=== PATIENT | female | born 1960 | race Caucasian/White ===

== ENCOUNTER 2016-09-07 16:22 | Observation (INO) | payer OTHER ==
[~2016-09-07] VITALS: Ht 157.5 cm; Wt 90.8 kg
[~2016-09-07 16:22] MED LIST: AMBIEN CR12.5 MG PO; AMBIEN10 MG PO; CIPRO500 MG PO; FLUOXETINE HCL20 M1 PO; KEPPRA; KEPPRA500 MG PO; KLONOPIN0.5 M1 PO; LAMICTAL100 MG PO; LAMOTRIGINE; LAMOTRIGINE100 MG PO; OMEPRAZOLE40 M1 PO; OXYCODONE HCL5 MG PO; TYLENOL WITH C1 EACH PO; ZOFRAN4 MG PO; ZOLPIDEM TART12.5 MG PO
[2016-09-07 17:05] LABS: EOSINOPHIL (%) 0.1 % (0-5); HEMATOCRIT 43.6 % (36.0-46.0); IMMATURE GRANULOCYTE (%) 0.7 % (0.0-0.7); IMMATURE GRANULOCYTE COUNT 0.1 K/uL; INSTRUMENT ABS NEUTROPHIL CT 15.6 K/uL; LYMPHOCYTE COUNT 1.1 K/uL (1.0-2.8); MCH 29.8 PG (29.0-34.0); MCHC 33.3 G/DL (30.0-36.0); MCV 89.5 FL (83-99); MEAN PLAT.VOLUME 8.1 uM^3 (9.5-12.4); MONOCYTE (%) 8.5 % (3-12); MONOCYTE COUNT 1.6 K/uL (0-0.8); NEUTROPHIL (%) 84.6 % (45-76); NEUTROPHIL COUNT 15.6 K/uL (1.8-6.4); PLATELET COUNT 197 K/uL (156-360); RBC DIS.WIDTH-SD 42.8 % (39-53); RED BLOOD COUNT 4.87 M/uL (3.80-5.20); WHITE BLOOD COUNT 18.4 K/uL (4.1-10.2)
[2016-09-07 17:17] LABS: CHLORIDE 104 mEq/L (99-109); POTASSIUM 5.2 mEq/L (3.7-5.4); SODIUM 142 mEq/L (136-147)
[2016-09-07 17:19] LABS: GLUCOSE 93 mg/dL (70-99)
[2016-09-07 17:20] LABS: ANION GAP 11 MEQ/L (2-14)
[2016-09-07 17:21] LABS: TOTAL BILIRUBIN 0.1 mg/dL (0.0-1.0)
[2016-09-07 17:22] LABS: ALKALINE PHOSPHATASE 83 IU/L (3-129)
[2016-09-07 17:23] LABS: GFR ESTIMATE (CALCULATED) 45 mL/min/
[2016-09-07 17:24] LABS: UREA NITROGEN (BUN) 15 mg/dL (9-23)
[2016-09-07 17:25] LABS: TROP-I INTERPRETATION NEGATIVE; TROPONIN-I 0.08 ng/mL (0.0-0.30)
[2016-09-07 17:26] LABS: CREATINE KINASE 124 IU/L (1-294); TOTAL CK 124 IU/L (1-294)
[2016-09-07 17:32] LABS: CK-MB 2.3 ng/mL (0.0-4.9)
[2016-09-07] MEDS ORDERED: CLONAZEPAM0.5 MG PO (19:31)
[2016-09-07] MEDS ORDERED: PERCOCET 5/31 TABLET PO (19:31)
[2016-09-07] MEDS ORDERED: OXCARBAZEPINE600 MG PO ×2 (19:31)
[2016-09-07 20:44] LABS: ADD MIUA? YES; BILIRUBIN NEGATIVE; BLOOD NEGATIVE; COLOR YELLOW ((YELLOW)); GLUCOSE (STRIP) NEGATIVE; KETONES NEGATIVE; LEUKOCYTES MODERATE; NITRITE NEGATIVE; PROTEIN (STRIP) 100; SPECIFIC GRAVITY 1.013 (1.000-1.030); UROBILINOGEN 0.2 MG/DL (0.2-1.0)
[2016-09-07 20:51] LABS: BACTERIA 1+ /HPF; EPITHELIAL CELLS 4+ /HPF; GRANULAR CASTS 0-5 /LPF; HYALINE CASTS 40-50 /LPF; MUCUS 1+ /LPF; UCUL ADDED? NO; WHITE BLOOD CELLS 20-30 /HPF (0-5)
[2016-09-07 20:52] LABS: ADD MEDTOX COMMENT Y; AMPHETAMINE NEGATIVE (500 ng/mL); BARBITURATES NEGATIVE (200 ng/mL); BENZODIAZEPINES PRESUMPTIVE POSITIVE (150 ng/mL); COCAINE NEGATIVE (150 ng/mL); INTERNAL CONTROLS VALID? YES; METHADONE NEGATIVE (200 ng/mL); METHAMPHETAMINE NEGATIVE (500 ng/mL); OPIATES (MORPHINE) NEGATIVE (100 ng/mL); OXYCODONE PRESUMPTIVE POSITIVE (100 ng/mL); PHENCYCLIDINE NEGATIVE (25 ng/mL); PROPOXYPHENE NEGATIVE (300 ng/mL); THC CANNABINOIDS PRESUMPTIVE POSITIVE (50 ng/mL); TRICYCLIC ANTIDEPRESSANTS NEGATIVE (300 ng/mL)
[2016-09-07 21:24] LABS: BENZODIAZEPINES QUANT VALUE 0 NG/ML; BENZODIAZEPINES, URINE SCREEN Negative (200 ng/mL)
[2016-09-08 00:01] LABS: D-DIMER ELISA 0.47 mg/L FEU (< 0.57); INTER. NORMALIZED RATIO 1.1; PROTHROMBIN TIME 11.1 (9.2-11.2); PTT 23.6 (25-32)
[2016-09-08 00:48] VITALS: BP 125/73
[2016-09-08 05:00] VITALS: BP 118/70
[2016-09-08 06:12] LABS: EOSINOPHIL (%) 0 % (0-5); HEMATOCRIT 33.2 % (36.0-46.0); IMMATURE GRANULOCYTE (%) 0.4 % (0.0-0.7); INSTRUMENT ABS NEUTROPHIL CT 7.8 K/uL; MCH 29.2 PG (29.0-34.0); MCHC 33.1 G/DL (30.0-36.0); MCV 88.1 FL (83-99); MEAN PLAT.VOLUME 8.7 uM^3 (9.5-12.4); MONOCYTE (%) 7.7 % (3-12); MONOCYTE COUNT 0.8 K/uL (0-0.8); NEUTROPHIL (%) 73.3 % (45-76); NEUTROPHIL COUNT 7.8 K/uL (1.8-6.4); PLATELET COUNT 170 K/uL (156-360); RBC DIS.WIDTH-CV 13.2 % (11.8-14.6); RBC DIS.WIDTH-SD 42.1 % (39-53); WHITE BLOOD COUNT 10.6 K/uL (4.1-10.2)
[2016-09-08 06:16] LABS: RED BLOOD COUNT 3.77 M/uL (3.80-5.20)
[2016-09-08 07:12] LABS: CHLORIDE 106 mEq/L (99-109); POTASSIUM 4.2 mEq/L (3.7-5.4); SODIUM 141 mEq/L (136-147)
[2016-09-08 07:14] LABS: GLUCOSE 79 mg/dL (70-99)
[2016-09-08 07:16] LABS: ANION GAP 10 MEQ/L (2-14)
[2016-09-08 07:18] LABS: ALKALINE PHOSPHATASE 65 IU/L (3-129); GFR ESTIMATE (CALCULATED) > 59 mL/min/
[2016-09-08 07:19] LABS: UREA NITROGEN (BUN) 14 mg/dL (9-23)
[2016-09-08 07:20] LABS: DIRECT BILIRUBIN 0.1 mg/dL (0.0-0.3)
[2016-09-08 07:21] LABS: TOTAL BILIRUBIN 0.2 mg/dL (0.0-1.0)
[2016-09-08 09:24] VITALS: BP 133/65
[2016-09-08 09:25] VITALS: BP 154/85
[2016-09-08 09:27] VITALS: BP 151/83
[2016-09-08] MEDS ORDERED: AUGMENTIN875 MG PO (11:56)
== END 2016-09-08 12:36 | disposition home or self-care (01) ==
LOC: EME 16:22 → EDOF 22:30 → 5WEST 09-08 00:17
PROVIDERS: Emergency Medicine; Hospitalist
DX: N39.0 Urinary tract infection, site not specified (principal); R55 Syncope and collapse; R06.02 Shortness of breath; R09.02 Hypoxemia; R06.4 Hyperventilation; R94.31 Abnormal electrocardiogram [ECG] [EKG]; G40.909 Epilepsy, unspecified, not intractable, without status epilepticus; K21.9 Gastro-esophageal reflux disease without esophagitis; F32.9 Major depressive disorder, single episode, unspecified; F41.9 Anxiety disorder, unspecified
CPT/HCPCS: 70450; 71020; 80048; 80053; 80076; 81003; 82550; 82553; 84484; 84999; 85025; 85379; 85610; 85730; 93005; 99281; 99285; G0378; J0696; J1650; J2310; J2405; J2765; J7030; J7050; J7120